=== PATIENT | male | born 1975 | race Hispanic/Latino ===

== ENCOUNTER 2018-08-26 12:48 | Emergency (ER) | payer OTHER ==
--- OUTSIDE RECORDS SUMMARY | 2018-08-26 13:01 | XMS REPORT | Continuity of Care Document ---
:1975 Author Organization Interface Problems Problem Status Onset Classification Date Comments Source Date Reported Cerebral palsy, Active Problem 08/20/2018 [facility] unspecified 6 Neuro Pain in right Active Problem 08/20/2018 [facility] knee 6 Neuro Localization-re Active Problem 08/20/2018 [facility] lated (partial) 6 Neuro symptomatic epilepsy and epileptic syndromes with simple partial seizures, intractable, without status epilepticus(<sp an ID="[id number]">Confirmed</s vargas>) Medications Medication Details Route Status Patient Ordering Order Source Instructions Provider Date Levetiracetam 500 mg=1 No Longer [facility] 500 MG Oral tab, PO, Active 018 Neuro Tablet [Keppra] BID, 0 Refill(s) 12 HR 400 mg=1 Active [facility] Carbamazepine tab, PO, 018 Neuro 400 MG Extended BID, 0 Release Tablet Refill(s) [Tegretol] Allergies, Adverse Reactions, Alerts Substance Category Reaction Severity Reaction Status Date Comments Source type Reported Immunizations Immunization Date Given Site Status Last Updated Comments Source Results Order Results Value Reference Date Interpretation Comments Source Name Range Vital Signs Vital Sign Value Date Comments Source Encounters Location Location Encounter Encounter Reason Attending ADM DC Status Source Details Type Number For Provider Date Date Visit [facility] Ambulatory [id number] Aayush 01/31 01/31 [facility] [id number] AAYUSH 02/12 [facility] [place] [facility] [id number] AAYUSH 11/12 [facility] Procedures Procedure Code Date Perfomer Comments Source
--- OUTSIDE RECORDS SUMMARY | 2018-08-26 13:02 | XMS REPORT ---
:1975 Author Organization eClinicalWorks Care Team Providers Name Role Phone Tay, Na Provider Role Unavailable Allergies, Adverse Reactions, Alerts Substance Reaction Event Type N.K.D.A. Info Not Available Non Drug Allergy Problems Problem Type Condition Code Onset Dates Condition Status Assessment Fatty liver K76.0 Active Assessment Seizure disorder G40.909 Active Assessment Alkaline phosphatase raised R74.8 Active Problem Fatty liver K76.0 Active Problem Seizure disorder G40.909 Active Problem Primary osteoarthritis of right M17.11 Active knee Problem Abnormal levels of other serum R74.8 Active enzymes Problem Family history of diabetes mellitus Z83.3 Active Problem Routine medical exam Z00.00 Active Assessment Elevated blood pressure reading R03.0 Active without diagnosis of hypertension Assessment Therapeutic drug monitoring Z51.81 Active Assessment Primary osteoarthritis of right M17.11 Active knee Assessment Tinea capitis B35.0 Active Medications Medication Code Code Instructions Start End Status Dosage System Date Date Ketoconazole [facility] 31045390105 2 % Externally Jan 23, Feb 22, Active as directed twice per week 2017 2017 TEGretol-XR [facility] [id number] 400 MG Orally Active 1 tablet Twice a day Results No Known Results Summary Purpose eClinicalWorks Submission
--- OUTSIDE RECORDS SUMMARY | 2018-08-26 13:02 | XMS REPORT ---
:1975 Author Organization eClinicalWorks Care Team Providers Name Role Phone Tay, Na Provider Role Unavailable Allergies, Adverse Reactions, Alerts Substance Reaction Event Type N.K.D.A. Info Not Available Non Drug Allergy Problems Problem Type Condition Code Onset Dates Condition Status Assessment Fatty liver K76.0 Active Assessment Seizure disorder G40.909 Active Assessment Alkaline phosphatase raised R74.8 Active Assessment Influenza vaccination administered Z23 Active at current visit Assessment Tinea capitis B35.0 Active Assessment Therapeutic drug monitoring Z51.81 Active Assessment Primary osteoarthritis of right M17.11 Active knee Problem Fatty liver K76.0 Active Problem Seizure disorder G40.909 Active Problem Primary osteoarthritis of right M17.11 Active knee Problem Abnormal levels of other serum R74.8 Active enzymes Problem Family history of diabetes mellitus Z83.3 Active Problem Routine medical exam Z00.00 Active Medications Medication Code System Code Instructions Start End Date Status Dosage Date TEGretol-XR [facility] [id number] 400 MG Orally Active 1 tablet Twice a day Results No Known Results Immunizations Vaccine Administration Date Afluria Mar 25, 2018 Summary Purpose eClinicalWorks Submission
--- OUTSIDE RECORDS SUMMARY | 2018-08-26 13:02 | XMS REPORT | Summary of Care ---
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, intractable, without status epilepticus(Confirmed) Allergies, Adverse Reactions, Alerts Substance Reaction Severity Status NKDA Active Medications Keppra 500 mg oral tablet 500 mg=1 tab, PO, BID, 0 Refill(s) Start Date: 07/11/17 Stop Date: 02/12/18 Status: DiscontinuedTegretol XR 400 mg oral tablet, extended release 400 mg=1 tab, PO, BID, 0 Refill(s) Start Date: 07/11/17 Status: Ordered Results No data available for this section Immunizations No data available for this section Procedures No data available for this section Social History Social History Type Response Smoking Status Unknown if ever smoked; Exposure to Tobacco Smoke Unable to obtain; Cigarette Smoking Last 365 Days Unable to obtain; Reg Smoking Cessation Counseling No entered on: 02/12/18 Assessment and Plan No data available for this section
--- OUTSIDE RECORDS SUMMARY | 2018-08-26 13:02 | XMS REPORT ---
:1975 Author Organization eClinicalWorks Care Team Providers Name Role Phone Tay, Na Provider Role Unavailable Allergies, Adverse Reactions, Alerts Substance Reaction Event Type N.K.D.A. Info Not Available Non Drug Allergy Problems Problem Type Condition Code Onset Dates Condition Status Assessment Tinea capitis B35.0 Active Assessment Seizure disorder G40.909 Active Assessment Primary osteoarthritis of right M17.11 Active knee Assessment Therapeutic drug monitoring Z51.81 Active Assessment Fatty liver K76.0 Active Assessment Alkaline phosphatase raised R74.8 Active Problem Fatty liver K76.0 Active Problem Seizure disorder G40.909 Active Problem Primary osteoarthritis of right M17.11 Active knee Problem Abnormal levels of other serum R74.8 Active enzymes Problem Family history of diabetes mellitus Z83.3 Active Problem Routine medical exam Z00.00 Active Medications Medication Code Code Instructions Start End Status Dosage System Date Date Ketoconazole [facility] [id number] 2 % Externally Jun 25, Active as directed twice per week 2018 TEGretol-XR [facility] [id number] 400 MG Orally Active 1 tablet Twice a day Results No Known Results Summary Purpose eClinicalWorks Submission
--- OUTSIDE RECORDS SUMMARY | 2018-08-26 13:02 | XMS REPORT ---
:1975 Author Organization eClinicalWorks Care Team Providers Name Role Phone Tay, Na Provider Role Unavailable Allergies No Known Allergies Problems Problem Type Condition Code Onset Dates Condition Status Problem Fatty liver K76.0 Active Problem Seizure disorder G40.909 Active Problem Primary osteoarthritis of right M17.11 Active knee Problem Abnormal levels of other serum R74.8 Active enzymes Problem Family history of diabetes mellitus Z83.3 Active Problem Routine medical exam Z00.00 Active Medications No Known Medications Results No Known Results Summary Purpose eClinicalWorks Submission
[2018-08-26 13:49] LABS: ALT/SGPT 25 U/L (12-78); AST/SGOT 19 U/L (15-37); Albumin 4.2 g/dL (3.4-5.0); Alkaline Phosphatase 147 U/L (45-117); BUN Blood Urea Nitrogen 13 mg/dL (7-18); Bicarbonate 28 mmol/L (21-32); Bilirubin Total 0.4 mg/dL (0.2-1.0); Glucose Level 104 mg/dL (74-106); Potassium 3.8 mmol/L (3.5-5.1); Protein, Total 8.4 g/dL (6.4-8.2); Sodium Level 140 mmol/L (136-145)
--- NOTE | 2018-08-26 14:40 | EDPHYS ---
Physician Documentation [facility] Name: Mason Dhillon Age: 42 yrs Sex: Male : 1975 Arrival Date: 08/26/2018 Time: 12:51 Bed 5 Private MD: ED Physician Guy Ureña HPI: 08/26 13:01 This 42 yrs old Male presents to ER via EMS with complaints of Seizure. ps1 13:01 patient reportedly has a seizure history and on tegretol. States he is compliant. ps1 States earlier this morning he felt as though he was going to have a seizure. He called an ambulance and was brought in for evaluation. During the history the patient states that he is having a seizure right now and looked over and talked to his mom and maintained conversation and looked back at me and said that he just had a seizure. He did not have tonic-clonic movements and did not have absence seizure. . Historical: - Allergies: 12:54 No Known Allergies; hb - Home Meds: 12:54 diclofenac sodium 75 mg Oral TbEC 1 tab 2 times per day [Active]; orphenadrine citrate hb 100 mg Oral TbER 1 tab 2 times per day for Muscle Spasm [Active]; Tegretol 200 mg Oral tab 2 tabs every 12 hours [Active]; - PMHx: 12:54 Seizures; hb - PSHx: 12:54 None; hb - Immunization history:: Adult Immunizations up to date. - Social history:: Smoking status: Patient/guardian denies using tobacco. - Ebola Screening: : No symptoms or risks identified at this time. ROS: 13:01 Constitutional: Negative for fever, chills, and weight loss, Eyes: Negative for injury, ps1 pain, redness, and discharge, ENT: Negative for injury, pain, and discharge, Cardiovascular: Negative for chest pain, palpitations, and edema, Respiratory: Negative for shortness of breath, cough, wheezing, and pleuritic chest pain, Abdomen/GI: Negative for abdominal pain, nausea, vomiting, diarrhea, and constipation, Back: Negative for injury and pain, MS/Extremity: Negative for injury and deformity, Skin: Negative for injury, rash, and discoloration. 13:01 Neuro: Positive for seizure activity. Exam: 13:01 Constitutional: This is a well developed, well nourished patient who is awake, alert, ps1 and in no acute distress. Head/Face: Normocephalic, atraumatic. Eyes: Pupils equal round and reactive to light, extra-ocular motions intact. Lids and lashes normal. Conjunctiva and sclera are non-icteric and not injected. Chest/axilla: Normal chest wall appearance and motion. Nontender with no deformity. No lesions are appreciated. Cardiovascular: Regular rate and rhythm. No gallops, murmurs, or rubs. Normal PMI, no JVD. No pulse deficits. Respiratory: Lungs have equal breath sounds bilaterally, clear to auscultation and percussion. No rales, rhonchi or wheezes noted. No increased work of breathing, no retractions or nasal flaring. Abdomen/GI: Soft, non-tender, with normal bowel sounds. No distension or tympany. No guarding or rebound. No evidence of tenderness throughout. MS/ Extremity: Pulses equal, no cyanosis. Neurovascular intact. Full, normal range of motion. Neuro: Awake and alert, GCS 15, oriented to person, place, time, and situation. Cranial nerves II-XII grossly intact. Sensory grossly intact. Vital Signs: 12:51 BP 147 / 68; Pulse 83; Resp 16; Temp 98.1; Pulse Ox 100% on R/A; Pain 2/10; hb [place]ie Coma Score: 12:54 Eye Response: spontaneous(4). Verbal Response: oriented(5). Motor Response: obeys hb commands(6). Total: 15. MDM: 13:04 Patient medically screened. ps1 08/26 13:01 Order name: Lactate; Complete Time: 13:47 ps1 08/26 13:01 Order name: CMP; Complete Time: 13:52 ps1 Administered Medications: No medications were administered Disposition: 08/26/18 14:40 Discharged to Home. Impression: Epilepsy and recurrent seizures. - Condition is Stable. - Discharge Instructions: Seizure, Adult. - Work release form, Medication Reconciliation Form, Thank You Letter, Antibiotic Education, Prescription Opioid Use form. - Follow up: Private Physician; When: As needed; Reason: Recheck today's complaints, Continuance of care, Re-evaluation by your physician. Follow up: Emergency Department; When: As needed; Reason: Worsening of condition. - Problem is chronic. - Symptoms have improved. Signatures: Dispatcher [employer] EDMS Anastacia Odell RN RN ss Juliette Heath RN RN Guy Ureña MD MD ps1 Corrections: (The following items were deleted from the chart) 15:34 14:40 08/26/2018 14:40 Discharged to Home. Impression: Epilepsy and recurrent seizures. ss Condition is Stable. Forms are Medication Reconciliation Form, Thank You Letter, Antibiotic Education, Prescription Opioid Use. Follow up: Private Physician; When: As needed; Reason: Recheck today's complaints, Continuance of care, Re-evaluation by your physician. Follow up: Emergency Department; When: As needed; Reason: Worsening of condition. Problem is chronic. Symptoms have improved. ps1
--- NOTE | 2018-08-26 14:40 | ER ---
Nurse's Notes [facility] Name: Mason Dhillon Age: 42 yrs Sex: Male : 1975 Arrival Date: 08/26/2018 Time: 12:51 Bed 5 Private MD: Diagnosis: Epilepsy and recurrent seizures Presentation: 08/26 12:52 Presenting complaint: EMS states: Seizure while in bed at home. BP 150/88, HR 94, post hb ictal on scene, answering questions appropriately but slow to respond. Hx of seizures, takes Tegretol 400mg BID. Transition of care: patient was not received from another setting of care. Onset of symptoms was August 26, 2018. Risk Assessment: Do you want to hurt yourself or someone else? Patient reports no desire to harm self or others. Initial Sepsis Screen: Does the patient meet any 2 criteria? No. Patient's initial sepsis screen is negative. Does the patient have a suspected source of infection? No. Patient's initial sepsis screen is negative. Care prior to arrival: None. 12:52 Method Of Arrival: EMS: [facility] 12:52 Acuity: COURTNEY 3 hb Triage Assessment: 12:55 General: Appears in no apparent distress. Behavior is calm, cooperative. Pain: Pain hb currently is 2 out of 10 on a pain scale. Neuro: Level of Consciousness is awake, obeys commands, Oriented to person, place, time, situation. Cardiovascular: Capillary refill < 3 seconds Patient's skin is warm and dry. Respiratory: Airway is patent Respiratory effort is even, unlabored, Respiratory pattern is regular, symmetrical. Musculoskeletal: Reports right knee pain. Historical: - Allergies: 12:54 No Known Allergies; hb - Home Meds: 12:54 diclofenac sodium 75 mg Oral TbEC 1 tab 2 times per day [Active]; orphenadrine citrate hb 100 mg Oral TbER 1 tab 2 times per day for Muscle Spasm [Active]; Tegretol 200 mg Oral tab 2 tabs every 12 hours [Active]; - PMHx: 12:54 Seizures; hb - PSHx: 12:54 None; hb - Immunization history:: Adult Immunizations up to date. - Social history:: Smoking status: Patient/guardian denies using tobacco. - Ebola Screening: : No symptoms or risks identified at this time. Screenin:56 Abuse screen: Denies threats or abuse. Denies injuries from another. Nutritional hb screening: No deficits noted. Tuberculosis screening: No symptoms or risk factors identified. Fall Risk Total Juarez Fall Scale indicates High Risk Score (45 or more points). Fall prevention measures have been instituted. Side Rails Up X 2 Frequent Obs/Assessments Occuring Family Present and informed to notify staff if the need to leave the bedside As available patient and family educated on Fall Prevention Program and Strategies. Assessment: 12:55 General: SEE TRIAGE ASSESSMENT. hb Vital Signs: 12:51 BP 147 / 68; Pulse 83; Resp 16; Temp 98.1; Pulse Ox 100% on R/A; Pain 2/10; hb [place] Coma Score: 12:54 Eye Response: spontaneous(4). Verbal Response: oriented(5). Motor Response: obeys hb commands(6). Total: 15. ED Course: 12:51 Patient arrived in ED. hb 12:52 Guy Ureña MD is Attending Physician. ps1 12:53 Triage completed. hb 12:56 Arm band placed on. hb 12:56 Patient has correct armband on for positive identification. Bed in low position. Call hb light in reach. Side rails up X2. Seizure precautions initiated. 13:15 Inserted saline lock: 20 gauge in right antecubital area, using aseptic technique. hb Blood collected. 13:55 Juliette Heath, RN is Primary Nurse. hb 15:33 No provider procedures requiring assistance completed. IV discontinued, intact, ss bleeding controlled, No redness/swelling at site. Pressure dressing applied. Administered Medications: No medications were administered Outcome: 14:40 Discharge ordered by . ps1 15:33 Discharged to home via wheelchair, with family. ss 15:33 Condition: good 15:33 Discharge instructions given to patient, family, Instructed on discharge instructions, follow up and referral plans. medication usage, Demonstrated understanding of instructions, follow-up care, medications. 15:34 Patient left the ED. ss Signatures: Anastacia Odell RN RN Juliette Heath, SHERYL RN Guy Ureña MD MD ps1
== END 2018-08-26 15:34 | disposition home or self-care (01) ==
LOC: ER 12:48
DX: G40.802 Other epilepsy, not intractable, without status epilepticus (principal)
CPT/HCPCS: 36415; 80053; 83605